=== PATIENT | male | born 1945 | race Two or more races ===

== ENCOUNTER 2018-08-06 01:36 | Inpatient (IN) | payer MEDICARE, BC ==
[~2018-08-06] VITALS: Ht 182.9 cm; Wt 102.1 kg
--- NOTE | 2018-08-06 16:20 | NUR ---
PT WAS ADMITTED TODAY AT 1620 ON VOL STATUS. PT IS A&OX3-4, CALM, COOPERATIVE, DENIES SI/HI AT THIS TIME, DEPRESSED MOOD, FLAT AFFECT, HOPELESS, UNMOTIVATED FOR SELF CARE, C/O INSOMNIA, TOOK AMBIEN 10MG PO TO GO TO SLEEP AND WOKE UP [place] THE MIDDLE OF THE STREET UNAWARE OF HOW HE GOT THERE, PER PT HE HAD BEEN SLEEP WALKING. PT WAS BROUGHT TO THE UNIT BY HIS FAMILY VIA PRIVATE VEHICLE. PT IS AMBULATORY, PT HAS ABRASIONS ON BILATERAL KNEES DUE TO FALLING WHILE SLEEP WALKING AND UNAWARE OF WHAT ACTUALLY HAPPENED, PT ALSO HAS BRUISES ON BILATERAL ARMS, LEGS AND ABDOMEN. PT HAS SCABS ON HIS FACE AND HEAD FROM NITROGEN FREEZING PER PT. PT HAS SIGNED ALL PAPERWORK. ALL BELONGINGS WERE CHECKED AND PT HAS SIGNED THE PAPERWORK. PT WAS ORIENTED TO THE UNIT. VS: 133/88, 96, 20, 96%RA, 97.8, 0/10 PAIN. ADMISSION ORDERS WERE OBTAINED FROM [facility] AND DR. HAY HAS BEEN NOTIFIED THAT MED RECON NEEDS TO BE COMPLETED. WILL CONTINUE TO MONITOR FOR SAFETY AND BEHAVIOR.
[2018-08-06] MEDS ORDERED: MAG HYDROX/AL HYDROX/SIMETH 30 ML UDC PO PRN (16:30)
[2018-08-06] MEDS ORDERED: MAGNESIUM HYDROXIDE 30 ML UDC PO PRN (16:30)
[2018-08-06] MEDS ORDERED: ACETAMINOPHEN 325 MG TABLET PO PRN (16:30)
[2018-08-06] MEDS ORDERED: MOME17SP NS (16:34)
[2018-08-06] MEDS ORDERED: MAGN70TA2 PO (16:34)
[2018-08-06] MEDS ORDERED: ATOR20TA PO (16:34)
[2018-08-06] MEDS ORDERED: METO-356 PO (16:34)
[2018-08-06] MEDS ORDERED: MONT10TA22 PO (16:34)
[2018-08-06] MEDS ORDERED: ASPI-1169 PO (16:34)
[2018-08-06] MEDS ORDERED: AZEL205. NS (16:34)
[2018-08-06] MEDS ORDERED: DULO20CA PO (16:34)
[2018-08-06] MEDS ORDERED: BUPR100T5 PO (16:34)
[2018-08-06] MEDS ORDERED: OMEP10CA4 PO (16:34)
[2018-08-06] MEDS ORDERED: CLOP75TA15 PO (16:34)
[2018-08-06] MEDS ORDERED: METF-441 PO (16:34)
[2018-08-06] MEDS ORDERED: FLUT1DIS3 IH (16:34)
[2018-08-06] MEDS ORDERED: POTA20TA83 PO (16:34)
[2018-08-06] MEDS ORDERED: BIMA2.5D5 EACHEYE (16:34)
[2018-08-06] MEDS ORDERED: CHLO25TA2 PO (16:34)
[2018-08-06] MEDS ORDERED: TRAZ-214 PO (16:34)
[2018-08-06] MEDS: MONTELUKAST SODIUM (10MG) 10 MG TABLET PO SCH (21:50)
[2018-08-06] MEDS: ATORVASTATIN 10 MG TABLET PO SCH (21:51)
[2018-08-06] MEDS: LATANOPROST EYE DROP 0.005% 2.5 ML BOTTLE EACHEYE SCH (21:51)
[2018-08-06] MEDS: TEMAZEPAM 7.5 MG CAPSULE PO PRN (22:42)
[2018-08-07 08:00] VITALS: BP 127/84
[2018-08-07 08:07] LABS: ALANINE AMINOTRANSFERASE 24 U/L (12-78); ALBUMIN 3.7 g/dL (3.4-5.0); ALKALINE PHOSPHATASE 63 U/L (46-116); ASPARTATE AMINOTRANSFERASE 22 U/L (15-37); BILIRUBIN,TOTAL 1.2 mg/dL (0.2-1.0); CARBON DIOXIDE 31 mmol/L (21-32); CHLORIDE 99 mmol/L (98-107); CREATININE 0.8 mg/dL (0.6-1.3); GLUCOSE 106 mg/dL (74-106); POTASSIUM 3.4 mmol/L (3.5-5.1); SODIUM SERUM 139 mmol/L (136-145); TOTAL PROTEIN, SERUM 7.6 g/dL (6.4-8.2); UREA NITROGEN, BLOOD 17 mg/dL (7-18)
[2018-08-07 08:18] LABS: CHOLESTEROL 123 mg/dL (<200); HDL CHOLESTEROL 48 mg/dL (40-60); LDL 71 mg/dL (0-99); TRIGLYCERIDES 57 mg/dL (30-150)
[2018-08-07] MEDS: CLOPIDOGREL BISULFATE 75 MG TABLET PO SCH (08:22)
[2018-08-07] MEDS: PANTOPRAZOLE 40 MG TABLET.DR PO SCH (08:22)
[2018-08-07] MEDS: METOPROLOL SUCCINATE 25 MG TAB.SR.24H PO SCH (08:23)
[2018-08-07] MEDS: ASPIRIN 81 MG TAB.CHEW PO SCH (08:23)
[2018-08-07] MEDS: POTASSIUM CHLORIDE 20 MEQ TAB.PRT.SR PO SCH ×2 (08:30→16:09)
[2018-08-07] MEDS: MOMETASONE FUROATE NASAL SUSP 17 GM BOTTLE SCH ×2 (08:31→16:09)
[2018-08-07] MEDS: FLUTICASONE/VILANTEROL 1 EACH BLST.W.DEV IH SCH (08:31)
[2018-08-07] MEDS: METFORMIN 850 MG TABLET PO SCH ×3 (08:47→16:21)
[2018-08-07] MEDS ORDERED: DULOXETINE HCL 20 MG CAPSULE.DR PO SCH (09:00)
[2018-08-07] MEDS ORDERED: FLUTICASONE/SALMETEROL DISKUS IH SCH (09:00)
[2018-08-07] MEDS ORDERED: POTASSIUM CHLORIDE 20 MEQ TAB.PRT.SR PO ONE (14:00)
--- NOTE | 2018-08-07 14:01 | NUR ---
INITIAL DISCHARGE PLAN: Patient wishes to be discharged home to [address] [place] [address] [place] [address] . SW will help form a safe and proper discharge in collaboration with .
[2018-08-07 16:00] VITALS: BP 119/59
[2018-08-07] MEDS ORDERED: BIMATOPROST 2.5 ML DROPS OP SCH (18:00)
[2018-08-07 19:43] VITALS: BP 124/78
[2018-08-07] MEDS: TEMAZEPAM 7.5 MG CAPSULE PO PRN (20:10)
[2018-08-07] MEDS: LORAZEPAM 0.5 MG TABLET PO PRN (21:33)
[2018-08-07] MEDS: ATORVASTATIN 10 MG TABLET PO SCH (21:33)
[2018-08-07] MEDS ORDERED: TRAZODONE 50 MG TABLET PO SCH (22:00)
[2018-08-07] MEDS: LATANOPROST EYE DROP 0.005% 2.5 ML BOTTLE EACHEYE SCH ×2 (22:26→22:27)
[2018-08-07] MEDS: MONTELUKAST SODIUM (10MG) 10 MG TABLET PO SCH (22:26)
[2018-08-08] MEDS: POTASSIUM CHLORIDE 20 MEQ TAB.PRT.SR PO SCH ×2 (08:30→16:27)
[2018-08-08] MEDS: ASPIRIN 81 MG TAB.CHEW PO SCH (08:30)
[2018-08-08] MEDS: PANTOPRAZOLE 40 MG TABLET.DR PO SCH (08:31)
[2018-08-08] MEDS: CLOPIDOGREL BISULFATE 75 MG TABLET PO SCH (08:31)
[2018-08-08] MEDS: METOPROLOL SUCCINATE 25 MG TAB.SR.24H PO SCH (08:31)
[2018-08-08] MEDS: METFORMIN 850 MG TABLET PO SCH ×2 (08:39→16:27)
[2018-08-08] MEDS: FLUTICASONE/VILANTEROL 1 EACH BLST.W.DEV IH SCH (08:40)
[2018-08-08] MEDS: MOMETASONE FUROATE NASAL SUSP 17 GM BOTTLE SCH ×2 (08:40→16:35)
[2018-08-08 08:46] VITALS: BP_SYST 125
--- NOTE | 2018-08-08 10:45 | NUR ---
WOUND CARE CONSULT: PT PRESENTS WITH LARGE BRUISE ON ABDOMEN AND SOME DRY ABRASIONS ON LEGS, PRESENT ON ADMISSION. 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 PT IS AMBULATORY AND CONTINENT. WILL SEE PRN.
[2018-08-08 16:00] VITALS: BP 120/76
[2018-08-08 20:00] VITALS: BP 124/75
[2018-08-08] MEDS: ATORVASTATIN 10 MG TABLET PO SCH (21:45)
[2018-08-08] MEDS: LATANOPROST EYE DROP 0.005% 2.5 ML BOTTLE EACHEYE SCH (21:45)
[2018-08-08] MEDS: GUAIFENESIN/D-METHORPHAN HB 5 ML UDC PO PRN (21:46)
[2018-08-08] MEDS: MONTELUKAST SODIUM (10MG) 10 MG TABLET PO SCH (21:46)
[2018-08-08] MEDS ORDERED: TRAZODONE 50 MG TABLET PO SCH (22:00)
[2018-08-09 08:00] VITALS: BP 126/71
[2018-08-09] MEDS: METFORMIN 850 MG TABLET PO SCH ×2 (08:46→17:31)
[2018-08-09] MEDS: PANTOPRAZOLE 40 MG TABLET.DR PO SCH (08:46)
[2018-08-09] MEDS: POTASSIUM CHLORIDE 20 MEQ TAB.PRT.SR PO SCH ×2 (08:46→17:31)
[2018-08-09] MEDS: CLOPIDOGREL BISULFATE 75 MG TABLET PO SCH (08:46)
[2018-08-09] MEDS: ASPIRIN 81 MG TAB.CHEW PO SCH (08:46)
[2018-08-09] MEDS: METOPROLOL SUCCINATE 25 MG TAB.SR.24H PO SCH (08:47)
[2018-08-09] MEDS: MOMETASONE FUROATE NASAL SUSP 17 GM BOTTLE SCH ×2 (08:48→17:33)
[2018-08-09] MEDS: FLUTICASONE/VILANTEROL 1 EACH BLST.W.DEV IH SCH (08:48)
[2018-08-09 16:00] VITALS: BP 102/55
[2018-08-09] MEDS ORDERED: BACI/NEOM/POLY B OINT PKT 1 UDPKT PACKET TP SCH (17:00)
[2018-08-09] MEDS: NEOMY SULF/BACITRAC ZN/POLY 15 GM TUBE TP SCH (18:33)
[2018-08-09 20:00] VITALS: BP 130/72
[2018-08-09] MEDS: GUAIFENESIN/D-METHORPHAN HB 5 ML UDC PO PRN (21:45)
[2018-08-09] MEDS: LATANOPROST EYE DROP 0.005% 2.5 ML BOTTLE EACHEYE SCH (21:45)
[2018-08-09] MEDS: ATORVASTATIN 10 MG TABLET PO SCH (21:45)
[2018-08-09] MEDS: MIRTAZAPINE 15 MG TABLET PO SCH (21:45)
[2018-08-09] MEDS: MONTELUKAST SODIUM (10MG) 10 MG TABLET PO SCH (22:05)
[2018-08-10 08:00] VITALS: BP 121/67
[2018-08-10] MEDS: ASPIRIN 81 MG TAB.CHEW PO SCH (08:25)
[2018-08-10] MEDS: PANTOPRAZOLE 40 MG TABLET.DR PO SCH (08:25)
[2018-08-10] MEDS: METFORMIN 850 MG TABLET PO SCH ×2 (08:25→16:25)
[2018-08-10] MEDS: POTASSIUM CHLORIDE 20 MEQ TAB.PRT.SR PO SCH ×2 (08:25→16:25)
[2018-08-10] MEDS: CLOPIDOGREL BISULFATE 75 MG TABLET PO SCH (08:25)
[2018-08-10] MEDS: METOPROLOL SUCCINATE 25 MG TAB.SR.24H PO SCH (08:25)
[2018-08-10] MEDS: MOMETASONE FUROATE NASAL SUSP 17 GM BOTTLE SCH ×2 (08:29→16:25)
[2018-08-10] MEDS: FLUTICASONE/VILANTEROL 1 EACH BLST.W.DEV IH SCH (08:29)
[2018-08-10] MEDS: NEOMY SULF/BACITRAC ZN/POLY 15 GM TUBE TP SCH ×2 (08:30→16:26)
--- NOTE | 2018-08-10 15:51 | NUR ---
GPS/RN-NOTES STATED " I'M TAKING MAGNESIUM CHLORIDE NOT MAGNESIUM -OXIDE AT NIGHT TIME". COLOR DIPPER BHARTI MADE AWARE AND AGREES WITH T.O ORDER OF MAGNESIUM CHLORIDE 400MG P.O QHS. NOTED AND CARRIED OUT.
[2018-08-10 16:00] VITALS: BP 127/78
[2018-08-10 20:00] VITALS: BP 152/77
[2018-08-10] MEDS: GUAIFENESIN/D-METHORPHAN HB 5 ML UDC PO PRN (20:43)
--- NOTE | 2018-08-10 21:40 | NUR ---
MAGNESIUM CHLORIDE IS NOT AVAILABLE IN THE [facility]. PAGED JESSE GARCÍA (MICROBIOLOGY QUALITY CONTROL TECHNICIAN) TO VERIFY THE ORDERS. SHE ORDERED MAGNESIUM OXIDE AND DISCONTINUE THE MAGNESIUM CHLORIDE. NOTED AND CARRIED OUT.
[2018-08-10] MEDS ORDERED: MAGNESIUM CHLORIDE 64 MG TABLET.SA PO SCH (22:00)
[2018-08-10] MEDS ORDERED: MAGNESIUM OXIDE 400 MG TABLET PO SCH (22:00)
[2018-08-10] MEDS ORDERED: BISMUTH SUBSALICYLATE 262 MG/15 ML BOTTLE PO PRN (22:00)
[2018-08-10] MEDS: LATANOPROST EYE DROP 0.005% 2.5 ML BOTTLE EACHEYE SCH (22:19)
[2018-08-10] MEDS: ATORVASTATIN 10 MG TABLET PO SCH (22:19)
[2018-08-10] MEDS: MONTELUKAST SODIUM (10MG) 10 MG TABLET PO SCH (22:21)
[2018-08-10] MEDS: MIRTAZAPINE 15 MG TABLET PO SCH (22:21)
[2018-08-10] MEDS: MAGNESIUM OXIDE 400 MG TABLET PO SCH (22:24)
[2018-08-11 07:53] LABS: BASOPHILS % (AUTO) 0.4 % (0.0-2.0); EOSINOPHILS % (AUTO) 3.5 % (0.0-6.0); HEMATOCRIT 44 % (39-51); LYMPHOCYTES # (AUTO) 1.5 /CMM (0.8-4.8); LYMPHOCYTES % (AUTO) 17.4 % (20.0-44.0); MEAN CORPUSCULAR HGB CONC 32 g/dl (31.0-36.0); MEAN CORPUSCULAR VOLUME 77 fL (80-96); MONOCYTES # (AUTO) 0.7 /CMM (0.1-1.30); MONOCYTES % (AUTO) 7.9 % (2.0-12.0); NEUTROPHILS # (AUTO) 5.9 /CMM (1.8-8.9); NEUTROPHILS % (AUTO) 70.8 % (43.0-81.0); PLATELET COUNT (AUTO) 352 /CMM (150-450); RDW COEFFICIENT OF VARIATION 20.5 (11.5-15.0); RED BLOOD CELL COUNT(AUTO) 5.78 MIL/uL (4.5-6.0); WHITE BLOOD COUNT (AUTO) 8.4 K/uL (4.3-11.0)
[2018-08-11 08:00] VITALS: BP 140/75
[2018-08-11 08:13] LABS: CALCIUM, SERUM 8.9 mg/dL (8.5-10.1); CARBON DIOXIDE 31 mmol/L (21-32); CHLORIDE 103 mmol/L (98-107); GLUCOSE 91 mg/dL (74-106); MAGNESIUM 1.6 mg/dL (1.8-2.4); PHOSPHORUS 4.7 mg/dL (2.5-4.9); POTASSIUM 3.9 mmol/L (3.5-5.1); SODIUM SERUM 141 mmol/L (136-145); UREA NITROGEN, BLOOD 16 mg/dL (7-18)
[2018-08-11] MEDS: PANTOPRAZOLE 40 MG TABLET.DR PO SCH (08:42)
[2018-08-11] MEDS: FLUTICASONE/VILANTEROL 1 EACH BLST.W.DEV IH SCH (08:43)
[2018-08-11] MEDS: METFORMIN 850 MG TABLET PO SCH ×3 (08:44→16:24)
[2018-08-11] MEDS: METOPROLOL SUCCINATE 25 MG TAB.SR.24H PO SCH (08:44)
[2018-08-11] MEDS: POTASSIUM CHLORIDE 20 MEQ TAB.PRT.SR PO SCH ×2 (08:44→16:21)
[2018-08-11] MEDS: CLOPIDOGREL BISULFATE 75 MG TABLET PO SCH (08:44)
[2018-08-11] MEDS: ASPIRIN 81 MG TAB.CHEW PO SCH (08:44)
[2018-08-11] MEDS: NEOMY SULF/BACITRAC ZN/POLY 15 GM TUBE TP SCH ×2 (08:45→16:22)
[2018-08-11] MEDS: MOMETASONE FUROATE NASAL SUSP 17 GM BOTTLE SCH ×2 (09:00→16:22)
[2018-08-11 16:00] VITALS: BP 120/69
--- NOTE | 2018-08-11 16:25 | NUR ---
GPS/RN BHARTI WREN MADE AWARE OF MAGNESIUM 1.6. NEW ORDERS RECEIVED AND CARRIED OUT
[2018-08-11] MEDS: GUAIFENESIN/D-METHORPHAN HB 5 ML UDC PO PRN (16:26)
[2018-08-11] MEDS ORDERED: MAGNESIUM OXIDE 400 MG TABLET PO ONE (16:30)
[2018-08-11 20:35] VITALS: BP 122/68
[2018-08-11] MEDS: MIRTAZAPINE 15 MG TABLET PO SCH (22:00)
[2018-08-11] MEDS: MONTELUKAST SODIUM (10MG) 10 MG TABLET PO SCH (22:04)
[2018-08-11] MEDS: ATORVASTATIN 10 MG TABLET PO SCH (22:05)
[2018-08-11] MEDS: LATANOPROST EYE DROP 0.005% 2.5 ML BOTTLE EACHEYE SCH (22:05)
[2018-08-11] MEDS: MAGNESIUM OXIDE 400 MG TABLET PO SCH (22:05)
--- NOTE | 2018-08-11 22:15 | NUR ---
PATIENT REFUSED REMERON PT AGREED TO TAKE ALL MEDS BUT AFTER REMERON WAS OPENED, PT STATED THAT HE REMEMBERED THAT REMERON CAUSES SLEEPLESSNESS TO HIM, SO HE WOULD NOT TAKE REMERON AT ALL. OPENED REMERON WAS WASTED PER PROTOCOL. WILL MONITOR THE PATIENT CLOSELY.
[2018-08-12] MEDS: LORAZEPAM 0.5 MG TABLET PO PRN (03:41)
--- NOTE | 2018-08-12 03:41 | NUR ---
PRN ATIVAN GIVEN PATIENT STATED THAT HE IS FEELING ANXIOUS & UNABLE TO GO TO SLEEP, WANTED TO TAKE ATIVAN. PRN ATIVAN GIVEN & WILL REASSESS FOR EFFECTIVENESS. MONITORING CLOSELY.
[2018-08-12 08:00] VITALS: BP 127/85
[2018-08-12] MEDS: CLOPIDOGREL BISULFATE 75 MG TABLET PO SCH (09:11)
[2018-08-12] MEDS: PANTOPRAZOLE 40 MG TABLET.DR PO SCH (09:12)
[2018-08-12] MEDS: ASPIRIN 81 MG TAB.CHEW PO SCH (09:12)
[2018-08-12] MEDS: POTASSIUM CHLORIDE 20 MEQ TAB.PRT.SR PO SCH ×2 (09:12→16:21)
[2018-08-12] MEDS: METOPROLOL SUCCINATE 25 MG TAB.SR.24H PO SCH (09:13)
[2018-08-12] MEDS: METFORMIN 850 MG TABLET PO SCH ×2 (09:13→16:22)
[2018-08-12] MEDS: MOMETASONE FUROATE NASAL SUSP 17 GM BOTTLE SCH ×2 (09:19→16:24)
[2018-08-12] MEDS: FLUTICASONE/VILANTEROL 1 EACH BLST.W.DEV IH SCH (09:21)
[2018-08-12] MEDS: NEOMY SULF/BACITRAC ZN/POLY 15 GM TUBE TP SCH ×2 (09:21→16:24)
[2018-08-12] MEDS: GUAIFENESIN/D-METHORPHAN HB 5 ML UDC PO PRN (14:16)
[2018-08-12 16:00] VITALS: BP 111/66
[2018-08-12] MEDS: clonazePAM 0.5 MG TABLET PO SCH (20:34)
[2018-08-12] MEDS: DIVALPROEX SODIUM 250 MG TABLET.DR PO SCH (20:38)
[2018-08-12 20:56] VITALS: BP 126/68
[2018-08-12] MEDS: MAGNESIUM OXIDE 400 MG TABLET PO SCH (21:40)
[2018-08-12] MEDS: ATORVASTATIN 10 MG TABLET PO SCH (21:40)
[2018-08-12] MEDS: LATANOPROST EYE DROP 0.005% 2.5 ML BOTTLE EACHEYE SCH (21:40)
[2018-08-12] MEDS: MIRTAZAPINE 15 MG TABLET PO SCH (21:40)
[2018-08-12] MEDS: MONTELUKAST SODIUM (10MG) 10 MG TABLET PO SCH (21:40)
[2018-08-12] MEDS: TEMAZEPAM 7.5 MG CAPSULE PO PRN (21:40)
[2018-08-13 08:00] VITALS: BP 138/67
[2018-08-13] MEDS: POTASSIUM CHLORIDE 20 MEQ TAB.PRT.SR PO SCH ×2 (08:50→16:24)
[2018-08-13] MEDS: METFORMIN 850 MG TABLET PO SCH ×2 (08:50→16:28)
[2018-08-13] MEDS: CLOPIDOGREL BISULFATE 75 MG TABLET PO SCH (08:50)
[2018-08-13] MEDS: DIVALPROEX SODIUM 250 MG TABLET.DR PO SCH ×3 (08:51→16:28)
[2018-08-13] MEDS: METOPROLOL SUCCINATE 25 MG TAB.SR.24H PO SCH (08:51)
[2018-08-13] MEDS: PANTOPRAZOLE 40 MG TABLET.DR PO SCH (08:51)
[2018-08-13] MEDS: ASPIRIN 81 MG TAB.CHEW PO SCH (08:51)
[2018-08-13] MEDS: clonazePAM 0.5 MG TABLET PO SCH ×4 (08:52→22:03)
[2018-08-13] MEDS: FLUTICASONE/VILANTEROL 1 EACH BLST.W.DEV IH SCH (09:41)
[2018-08-13] MEDS: MOMETASONE FUROATE NASAL SUSP 17 GM BOTTLE SCH ×2 (09:41→16:25)
[2018-08-13] MEDS: NEOMY SULF/BACITRAC ZN/POLY 15 GM TUBE TP SCH ×2 (09:41→16:28)
[2018-08-13 16:00] VITALS: BP 135/74
[2018-08-13] MEDS: GUAIFENESIN/D-METHORPHAN HB 5 ML UDC PO PRN (16:26)
[2018-08-13 20:43] VITALS: BP 126/73
[2018-08-13] MEDS: MAGNESIUM OXIDE 400 MG TABLET PO SCH (21:19)
[2018-08-13] MEDS: ATORVASTATIN 10 MG TABLET PO SCH (21:20)
[2018-08-13] MEDS: MONTELUKAST SODIUM (10MG) 10 MG TABLET PO SCH (21:20)
[2018-08-13] MEDS: MIRTAZAPINE 15 MG TABLET PO SCH (21:20)
[2018-08-13] MEDS: LATANOPROST EYE DROP 0.005% 2.5 ML BOTTLE EACHEYE SCH (21:22)
[2018-08-13 23:00] VITALS: BP 124/72
[2018-08-14 08:00] VITALS: BP 128/67
[2018-08-14] MEDS: DIVALPROEX SODIUM 250 MG TABLET.DR PO SCH ×3 (09:15→17:44)
[2018-08-14] MEDS: CLOPIDOGREL BISULFATE 75 MG TABLET PO SCH (09:16)
[2018-08-14] MEDS: POTASSIUM CHLORIDE 20 MEQ TAB.PRT.SR PO SCH ×2 (09:16→17:44)
[2018-08-14] MEDS: ASPIRIN 81 MG TAB.CHEW PO SCH (09:16)
[2018-08-14] MEDS: PANTOPRAZOLE 40 MG TABLET.DR PO SCH (09:16)
[2018-08-14] MEDS: METFORMIN 850 MG TABLET PO SCH ×2 (09:16→17:44)
[2018-08-14] MEDS: METOPROLOL SUCCINATE 25 MG TAB.SR.24H PO SCH (09:16)
[2018-08-14] MEDS: FLUTICASONE/VILANTEROL 1 EACH BLST.W.DEV IH SCH (09:18)
[2018-08-14] MEDS: MOMETASONE FUROATE NASAL SUSP 17 GM BOTTLE SCH ×2 (09:18→17:45)
[2018-08-14] MEDS: NEOMY SULF/BACITRAC ZN/POLY 15 GM TUBE TP SCH ×2 (09:18→17:45)
--- NOTE | 2018-08-14 10:27 | NUR ---
SW contacted MD to discuss discharge date; SW left a voicemail for callback.
--- NOTE | 2018-08-14 12:40 | NUR ---
DUARTE contacted pts son Richard [phone] to provide him with an update in regards to discharge date. DUARTE informed Richard that MD has not ordered for discharge and did not know when pt will be discharging per MD. Richard stated that be would prefer pt be discharged on Sunday08/18/18 due to his availability.
[2018-08-14 17:14] VITALS: BP 128/89
[2018-08-14] MEDS ORDERED: DEXTROSE 50%-WATER 50 ML DISP.SYRIN IV PRN (18:00)
[2018-08-14] MEDS ORDERED: INSULIN REGULAR, HUMAN 100 UNIT/ML 3 ML VIAL SQ PRN (18:00)
[2018-08-14 20:07] VITALS: BP 141/88
[2018-08-14] MEDS: LATANOPROST EYE DROP 0.005% 2.5 ML BOTTLE EACHEYE SCH (21:15)
[2018-08-14] MEDS: MIRTAZAPINE 15 MG TABLET PO SCH (21:15)
[2018-08-14] MEDS: ATORVASTATIN 10 MG TABLET PO SCH (21:15)
[2018-08-14] MEDS: MONTELUKAST SODIUM (10MG) 10 MG TABLET PO SCH (21:15)
[2018-08-14] MEDS: MAGNESIUM OXIDE 400 MG TABLET PO SCH (21:15)
[2018-08-14] MEDS: BLOOD SUGAR DIAGNOSTIC 1 EACH STRIP IN SCH (21:53)
[2018-08-14] MEDS: clonazePAM 0.5 MG TABLET PO SCH (22:46)
[2018-08-15] MEDS: BLOOD SUGAR DIAGNOSTIC 1 EACH STRIP IN SCH ×4 (07:59→21:59)
[2018-08-15 08:00] VITALS: BP 110/69
[2018-08-15] MEDS: PANTOPRAZOLE 40 MG TABLET.DR PO SCH (08:59)
[2018-08-15] MEDS: ASPIRIN 81 MG TAB.CHEW PO SCH (09:25)
[2018-08-15] MEDS: METFORMIN 850 MG TABLET PO SCH ×2 (09:25→16:25)
[2018-08-15] MEDS: METOPROLOL SUCCINATE 25 MG TAB.SR.24H PO SCH (09:25)
[2018-08-15] MEDS: POTASSIUM CHLORIDE 20 MEQ TAB.PRT.SR PO SCH ×2 (09:25→16:26)
[2018-08-15] MEDS: DIVALPROEX SODIUM 250 MG TABLET.DR PO SCH ×3 (09:25→16:25)
[2018-08-15] MEDS: CLOPIDOGREL BISULFATE 75 MG TABLET PO SCH (09:25)
[2018-08-15] MEDS: MOMETASONE FUROATE NASAL SUSP 17 GM BOTTLE SCH ×2 (09:26→16:27)
[2018-08-15] MEDS: FLUTICASONE/VILANTEROL 1 EACH BLST.W.DEV IH SCH (09:26)
[2018-08-15] MEDS: NEOMY SULF/BACITRAC ZN/POLY 15 GM TUBE TP SCH ×2 (09:33→16:27)
--- NOTE | 2018-08-15 15:30 | NUR ---
DUARTE contacted pts son Richard [phone] to arrange transportation for discharge tomorrow Sunday08/16/18. Pts son will be transporting pt home at 1700.
[2018-08-15 16:00] VITALS: BP 109/56
[2018-08-15 20:00] VITALS: BP 136/76
[2018-08-15] MEDS: GUAIFENESIN/D-METHORPHAN HB 5 ML UDC PO PRN (20:40)
[2018-08-15] MEDS: MIRTAZAPINE 15 MG TABLET PO SCH (21:59)
[2018-08-15] MEDS: MAGNESIUM OXIDE 400 MG TABLET PO SCH (21:59)
[2018-08-15] MEDS: clonazePAM 0.5 MG TABLET PO SCH (21:59)
[2018-08-15] MEDS: ATORVASTATIN 10 MG TABLET PO SCH (21:59)
[2018-08-15] MEDS: MONTELUKAST SODIUM (10MG) 10 MG TABLET PO SCH (21:59)
[2018-08-15] MEDS: LATANOPROST EYE DROP 0.005% 2.5 ML BOTTLE EACHEYE SCH (22:01)
[2018-08-16 08:56] VITALS: BP 127/73
[2018-08-16 09:00] VITALS: BP 127/73
[2018-08-16] MEDS: METOPROLOL SUCCINATE 25 MG TAB.SR.24H PO SCH (09:00)
[2018-08-16] MEDS: ASPIRIN 81 MG TAB.CHEW PO SCH (09:05)
[2018-08-16] MEDS: CLOPIDOGREL BISULFATE 75 MG TABLET PO SCH (09:05)
[2018-08-16] MEDS: DIVALPROEX SODIUM 250 MG TABLET.DR PO SCH ×2 (09:05→13:36)
[2018-08-16] MEDS: POTASSIUM CHLORIDE 20 MEQ TAB.PRT.SR PO SCH (09:05)
[2018-08-16] MEDS: METFORMIN 850 MG TABLET PO SCH (09:05)
[2018-08-16] MEDS: PANTOPRAZOLE 40 MG TABLET.DR PO SCH (09:06)
[2018-08-16] MEDS: MOMETASONE FUROATE NASAL SUSP 17 GM BOTTLE SCH (09:06)
[2018-08-16] MEDS: FLUTICASONE/VILANTEROL 1 EACH BLST.W.DEV IH SCH (09:06)
[2018-08-16] MEDS: NEOMY SULF/BACITRAC ZN/POLY 15 GM TUBE TP SCH (09:07)
[2018-08-16] MEDS: BLOOD SUGAR DIAGNOSTIC 1 EACH STRIP IN SCH ×2 (09:09→13:35)
--- NOTE | 2018-08-16 14:43 | NUR ---
DISCHARGE NOTE: Pt was discharged at 1440 home to [id number] [place] [address] [place] [address] transported via private vehicle by pts son Richard [phone]. Pts mood was euphoric with congruent affect. Pt denied suicidal/homicidal ideations and denied visual/auditory hallucinations. Pt will schedule a follow up appointment with Psychiatrist: Dr. Cedrick Sutherland [id number] [facility] [address], [place] [id number] [phone] and Count Room Clerk: Dr. Bryan Reyes [id number] [facility] [address], [place] [id number] [phone]. The multidisciplinary exitcare form was done, printed, signed, and given to the patient.
--- NOTE | 2018-08-16 14:45 | NUR ---
GPS/RN PT DISCHARGE HOME. NO SI OR HI AT THE TIME OF DISCHARGE.EXIT CARE INSTRUCTIONS GIVEN AND UNDERSTOOD. MEDICALLY CLEARED FOR D/C BY ION WREN.PSYCH PRESCRIPTIONS PROVIDED. PT HAS HOME MEDS AVAILABLE AT HOME AND SCRIPT FOR MEDICAL HOME MEDS.PICTURES TAKEN PROPERTY RETURNED. LEFT HOME WITH HIS SON THERON VIA PRIVATE CAR.
== END 2018-08-16 14:45 | disposition home or self-care (01) | DRG 885 ==
LOC: GPS 15:56
PROVIDERS: ADMIT Psychiatry & Neurology Psychiatry; ATTEND Psychiatry & Neurology Psychiatry
DX: F39 Unspecified mood [affective] disorder (principal); E11.65 Type 2 diabetes mellitus with hyperglycemia; F23 Brief psychotic disorder; F29 Unspecified psychosis not due to a substance or known physiological condition; E78.5 Hyperlipidemia, unspecified; I10 Essential (primary) hypertension; Z86.73 Personal history of transient ischemic attack (TIA), and cerebral infarction without residual deficits; F41.9 Anxiety disorder, unspecified; Z98.890 Other specified postprocedural states; Z79.82 Long term (current) use of aspirin; Z79.84 Long term (current) use of oral hypoglycemic drugs; Z79.899 Other long term (current) drug therapy; E87.6 Hypokalemia; F32.9 Major depressive disorder, single episode, unspecified; I25.10 Atherosclerotic heart disease of native coronary artery without angina pectoris
CPT/HCPCS: 36415; 80048-TC; 80053-TC; 80061-TC; 82962-TC; 83735-TC; 84100-TC; 85025-TC; 87081-TC; J1815